=== PATIENT | female | born 1985 | race Caucasian/White ===

== ENCOUNTER 2017-05-18 01:30 | Inpatient (IN) ==
[2017-05-17 22:37] LABS: Amphetamine Screen,Urine Negative ng/mL (Cutoff=1000); Barbiturate Screen,Urine Negative ng/mL (Cutoff=200); Benzodiazepines Screen,Urine Negative ng/mL (Cutoff=200); Cannabinoid Screen,Urine Negative ng/mL (Cutoff = 50); Cocaine Screen,Urine Negative ng/mL (Cutoff= 300); Opiate Screen,Urine Negative ng/mL (Cutoff=300); Phencyclidine Screen,Urine Negative ng/mL (Cutoff=25)
[~2017-05-18 01:30] MED LIST: Famotidine 20 MG/2 ML VIAL IVP PRN; Naloxone 0.4 MG/ML INJ IVP PRN; Ondansetron 4 MG/2 ML VIAL IVP PRN; Ringers Solution, Lactated 1,000 ML IVC SCH
[2017-05-18] MEDS: *HR* Nalbuphine 20 MG/ML AMPUL IVP PRN ×2 (02:08→04:17)
[2017-05-18 02:20] LABS: Basophils % 0.2 %; Eosinophils % 0.1 %; Hemoglobin 11.2 g/dL (11.5-15.4); Immature Granulocytes % 0.8 % (0-4); Lymphocytes # 1.6 K/mcL (0.6-4.6); Lymphocytes % 11.3 %; Mean Corpuscular HGB Conc 33.9 g/dL (31.6-35.5); Mean Corpuscular Hemoglobin 28.9 pg (28.0-33.3); Mean Corpuscular Volume 85.1 fL (83.0-100.0); Mean Platelet Volume 9.6 fL (9.4-12.4); Monocytes # 0.8 K/mcL (0.0-1.3); Monocytes % 5.3 %; Neutrophils # 11.9 K/mcL (1.6-8.9); Platelet Count 312 K/mcL (140-400); Red Blood Count 3.88 M/mcL (3.82-4.97); Red Cell Distribution Width 14.6 % (11.5-14.5); Segmented Neutrophils % 82.3 %
--- NOTE | 2017-05-18 04:10 | OB/GYN History & Physical ---
Date of Encounter: 05/18/17 Time of Encounter: 02:00 Assessment and Plan (1) 40 weeks gestation of Current visit: Yes Status: Acute (2) Spontaneous onset of labor Current visit: Yes Status: Acute Admit for labor. Allow ambulation with intermittent monitoring. Clear liquid diet. Epidural when requested. Anticipate . (3) Rubella non-immune status, antepartum Current visit: Yes Status: Acute Offer vaccine . History of Present Illness Chief complaint: contractions HPI: Ms. Willingham is a 32 year old female presenting at 40 weeks gestation with c/o contractions every 4-5 minutes. She reports they started last night and have gotten closer together and more painful today. No LOF. Some bloody show noted but no active vaginal bleeding. Good FM. No other complaints. This has been uncomplicated. Blood type O positive. tpal negative HIV negative RUbella non-immune HepBsag negative Past Med Surg Social Fam HX - Past Medical History Medical history: no medical history Psychiatric history: no psych history - Past Surgical History Surgical History: no surgical history - Social History Smoking Status: Never smoker Alcohol use: none Drug use: none Obstetrical History - Pregnancies : 1 Medications and Allergies Ferrous Sulfate 05/17/17 [History] Tablet 05/17/17 [History] 3 Allergy/AdvReac Type Severity Reaction Status Date / Time No Known Allergies Allergy Verified 05/17/17 20:34 Review of System OB All systems PM: reviewed and no additional remarkable complaints except as stated Exam - Constitutional Constitutional: well developed, well nourished, moderate distress - HEENT HEENT: Mucus Membranes Moist - Lungs Respiratory exam: CTAB - Cardiovascular Cardiovascular exam: RRR - Abdomen Abdomen: Present: gravid, non tender - Extremities Extremities exam: normal inspection - Vulva Vulva: bilateral: normal - Cervix Dilation: 3 - Anus/Rectum Anus/Rectum: Present: normal perianal skin Results Result Diagrams: 05/18/17 01:45 Abnormal lab results WBC 14.5 K/mcL (4.3-11.1) H 05/18/17 01:45 Hgb 11.2 g/dL (11.5-15.4) L 05/18/17 01:45 Hct 33.0 % (35.3-44.9) L 05/18/17 01:45 RDW 14.6 % (11.5-14.5) H 05/18/17 01:45 Neutrophils # 11.9 K/mcL (1.6-8.9) H 05/18/17 01:45 All other labs normal. - VTE Reasons for not Prescribing Prophylaxis: Treatment not Indicated - Low risk for VTE
[2017-05-18] MEDS ORDERED: Epidural Premix (fent/bupiv) 110 ML EP ONE ×2 (05:57→13:38)
--- NOTE | 2017-05-18 05:57 | OB Labor Progress Note ---
Date of Encounter: 05/18/17 Time of Encounter: 05:55 Labor Progress Note - Subjective Subjective: Pt requesting epidural for pain with contractions. - Cervix Cervix: 4/90/0 - Heart Tones Heart Tones: Category I - [place]: 2-4 minutes per pt report. Not tracing well on toco. - Plan Plan: Plan for epidural. Will AROM when able. Anticipate .
[2017-05-18] MEDS ORDERED: *HR* FentaNYL (PF) 100 MCG/2 ML VIAL ONE (07:36)
[2017-05-18] MEDS ORDERED: Bupivacaine-MPF 0.25% 10 ML VIAL ONE (07:36)
[2017-05-18] MEDS ORDERED: Ondansetron 4 MG/2 ML VIAL IVP PRN ×2 (08:22→09:06)
[2017-05-18] MEDS ORDERED: *HR* FentaNYL (PF) 100 MCG/2 ML VIAL EP ONE (08:22)
[2017-05-18] MEDS ORDERED: EPHEDrine 50 MG/ML VIAL IVP PRN (08:22)
[2017-05-18] MEDS ORDERED: Bupivacaine-MPF 0.25% 10 ML VIAL EP ONE (08:22)
[2017-05-18] MEDS ORDERED: Naloxone 0.4 MG/ML INJ IVP PRN ×2 (08:22→09:06)
--- NOTE | 2017-05-18 08:26 | Anesthesia Evaluation PreOp ---
Date of Encounter: 05/18/17 Time of Encounter: 08:24 - Past History Planned Operation: SHANE Cardiac History: Denies any Significant Hx Pulmonary History: Denies Any Significant HX PATENT EXAMINER History: Denies Any Significant HX Other Medical History: Other Anesthesia History: No Prior Anesthetic Complications, Past Anesthesia (None, no family history of anesthetic complications.) Alcohol Use: none Drug use: none Medications and Allergies Ferrous Sulfate 05/17/17 [History] Tablet 05/17/17 [History] 3 Allergy/AdvReac Type Severity Reaction Status Date / Time No Known Allergies Allergy Verified 05/17/17 20:34 - Meds/Allergy Pre-op Review Medications Reviewed: Yes Allergies Reviewed: Yes Beta Blockers on Current Med List: No Anesthesia Results - Labs 05/18/17 01:45 Anesthesia Exam BP 120/70 T 97.2 R 20 P 82 Height: 6'0" Weight: 89.4kg NPO (# of Hours): 4 Pain Scale: 9 Pain Scale Used: Numeric (1 - 10) - HEENT Pupil (Motor): Pupils equal Mallampati: II Teeth: Normal Oral Opening: Greater than 3 - PATENT EXAMINER LOC: Oriented PATENT EXAMINER Motor: Normal RUE, Normal LUE, Normal RLE, Normal LLE, Normal Face PATENT EXAMINER Sensory: Normal: RUE, LUE, RLE, LLE, Face - Cardiac Rhythm: Regular Murmur: None JVD: No Carotid Bruit: No - Pulmonary Breath Sounds: bilateral Clear Respiratory Effort: Symmetrical Anesthesia Assess/Plan ASA Score: 2 Modified Missael Scale for Level of Consciousness: Cooperative, oriented, and tranquil Anesthetic Plan: Regional Autologous Blood: No Monitoring Plan: Standard Monitors Recovery Plan: Other
[2017-05-18] MEDS ORDERED: Epidural Premix (fent/bupiv) 110 ML EP SCH (08:30)
--- NOTE | 2017-05-18 08:36 | Anesthesia Procedures ---
<Sathish Mae M - Last Filed: 05/18/17 08:34> Date of Encounter: 05/18/17 Time of Encounter: 07:36 Procedures: Anesthesia - Epidural/Spinal Patient ID/Chart reviewed: Yes Patient examined: Yes OB Eval: Gestational age: 40 OB Eval: : 1 OB Eval: Hx Para: 0 OB Eval: Dilated at (cm): 4 OB Eval: Contractions: Non-stressed pattern Consent Obtained: Yes Supplemental Oxygen: None/Room Air Supplemental Oxygen Rate (L/min): 2 Site Prep: Aseptic Technique, Sterile prep and drape, Povidone-Iodine 1% Patient position: upright Local Anesthetic: Lidocaine 1% Amount of Local Anesthetic used: 3 Touhy Needle Gauge: 18 Touhy Needle Depth (cm): 5 Catheter Depth at Skin (cm): 14 Test Dose (1.5% Lido + Epi): Volume given (mls): 3 Test Dose Result: Negative Loading Dose: 0.25% Marcaine (mls): 10 Loading Dose: Fentanyl (mcg): 100 Loading Dose Administered: Thru Catheter Infusion Med: 0.125% Bupivacaine w/ 2 mcg/ml Fentanyl Infusion Rate (mls/hr): 18 Interspace Used: L4-L5 Loss of Resistance (TIMOTHY): Yes Blood: No CSF: No Paresthesia: No Procedure: SHANE placed in upright position 1st pass without any immediate noted complications. VSS and FHT stable throughout. Vitals + FHT's: 0736 BP 120/70 P 82 R 20 0809 BP 113/58 P 71 R 16 FHT 120s <Catrachita Gray L - Last Filed: 05/18/17 09:01> Date of Encounter: 05/18/17
[2017-05-18] MEDS ORDERED: *HR* HYDROmorphone (PF) 1 MG/ML SYRINGE IVP PRN (09:06)
[2017-05-18] MEDS ORDERED: *HR* Morphine 2 MG/ML SYRINGE IVP PRN (09:06)
--- NOTE | 2017-05-18 13:24 | OB Labor Progress Note ---
Date of Encounter: 05/18/17 Time of Encounter: 13:23 Labor Progress Note - Subjective Subjective: Pt comfortable with epidural. - Cervix Cervix: 5-6/90/0 - Heart Tones Heart Tones: Category I - [place]: Q5 minutes - Interventions Interventions: Pt repositioned to left lateral with peanut ball. - Plan Plan: Continue to monitor. Begin pitocin augmentation. Frequent position changes. Anticipate .
[2017-05-18] MEDS ORDERED: Oxytocin 20 units/ LR 1000 mL 20 UNIT/1,000 ML BAG IVC SCH ×2 (13:30→18:35)
--- NOTE | 2017-05-18 16:15 | OB/GYN Procedure Note ---
Delivery - Delivery Date: 05/18/17 Provider: Janet Espino Intrapartum events: none Delivery induction: none Delivery augmentation: pitocin Delivery monitor: external FHT, external uterine Anesthesia: epidural Estimated Blood Loss: 250 - (s) Infant A Delivery Date: 05/18/17 Delivery Time: 15:35 Presentation: vertex Position: FELIPE Route of delivery: Gender: Female Viability: Viable Pounds: 6 Ounces: 9 Weight Gram: 2.975 kg at 1 minute: 8 at 5 mins: 9 Shoulder Dystocia: not encountered Specimens collected: cord blood Placenta: spontaneous Cord: 3 umbilical vessels - Repair Episiotomy: none Laceration Description: None - Complications Delivery complications: none Delivery comments: Pt progressed normally to complete and +2 station. She then pushed effectively to over intact perineum for viable female infant weighing 6lbs. 9oz. with apgars 8 at one minute and 9 at five minutes. After a 3 minute delay the cord was clamped and cut and the placenta delivered spontaneous and intact. No repair needed. EBL 250ml. Mother and baby stable in kangaroo care following procedure. - Disposition Mom disposition: stable in LDR disposition: stable in LDR
[2017-05-18] MEDS ORDERED: Lanolin 28 GM TUBE TP PRN (18:35)
[2017-05-18] MEDS ORDERED: Acetaminophen 325 MG TABLET PO PRN (18:35)
[2017-05-18] MEDS ORDERED: Benzocaine/Menthol 56 GM AEROSOL SPRAY TP PRN (18:35)
[2017-05-18] MEDS ORDERED: Measles/Mumps/Rubella Vacc 0.5 ML VIAL SQ PRN (18:35)
[2017-05-18] MEDS ORDERED: Ibuprofen 600 MG TABLET PO PRN (18:35)
[2017-05-19 06:16] LABS: Basophils % 0.1 %; Eosinophils # 0.1 K/mcL (0.0-0.6); Eosinophils % 0.7 %; Hematocrit 28.1 % (35.3-44.9); Immature Granulocytes % 0.5 % (0-4); Lymphocytes # 2.6 K/mcL (0.6-4.6); Lymphocytes % 18.7 %; Mean Corpuscular Volume 87.5 fL (83.0-100.0); Mean Platelet Volume 9.7 fL (9.4-12.4); Monocytes # 0.9 K/mcL (0.0-1.3); Monocytes % 6.4 %; Neutrophils # 10.3 K/mcL (1.6-8.9); Platelet Count 233 K/mcL (140-400); Red Blood Count 3.21 M/mcL (3.82-4.97); Red Cell Distribution Width 14.9 % (11.5-14.5); Segmented Neutrophils % 73.6 %
[2017-05-19 08:44] VITALS: BP 108/69
[2017-05-19] MEDS ORDERED: Prenatal Vit/FA 1 EACH TABLET PO SCH (09:00)
--- NOTE | 2017-05-19 11:09 | Discharge Summary ---
Date of Encounter: 05/19/17 Time of Encounter: 11:07 - Discharge Diagnosis (1) (normal spontaneous vaginal delivery) Priority: Primary Status: Acute Comments: Doing well,, will D/C home. - Discharge Medications Prescriptions: Ibuprofen [Motrin] 600 mg PO Q6H PRN #40 tablet PRN Reason: Cramping Home Medications: Ferrous Sulfate 05/17/17 [History] Tablet 05/17/17 [History] Ibuprofen [Motrin] 600 mg PO Q6H PRN #40 tablet 05/19/17 [Rx] Allergies/Adverse Reactions: 3 Allergy/AdvReac Type Severity Reaction Status Date / Time No Known Allergies Allergy Verified 05/17/17 20:34 Data Procedures and tests throughout hospitalization: Laboratory Tests 05/17/17 05/18/17 05/19/17 20:20 01:45 05:46 WBC 14.5 H 13.9 H RBC 3.88 3.21 L Hgb 11.2 L 9.0 L D Hct 33.0 L 28.1 L MCV 85.1 87.5 MCH 28.9 28.0 MCHC 33.9 32.0 RDW 14.6 H 14.9 H Plt Count 312 233 MPV 9.6 9.7 Immature Gran % 0.8 0.5 Seg Neutrophils % 82.3 73.6 Lymphocytes % 11.3 18.7 Monocytes % 5.3 6.4 Eosinophils % 0.1 0.7 Basophils % 0.2 0.1 Neutrophils # 11.9 H 10.3 H Lymphocytes # 1.6 2.6 Monocytes # 0.8 0.9 Eosinophils # 0.0 0.1 Basophils # 0.0 0.0 Urine Opiates Screen Negative Ur Barbiturates Screen Negative Ur Phencyclidine Scrn Negative Ur Amphetamines Screen Negative U Benzodiazepines Scrn Negative Urine Cocaine Screen Negative U Marijuana (THC) Screen Negative Labs on day of discharge: Labs from last 24 hours 05/19/17 05:46 WBC 13.9 H RBC 3.21 L Hgb 9.0 L D Hct 28.1 L MCV 87.5 MCH 28.0 MCHC 32.0 RDW 14.9 H Plt Count 233 MPV 9.7 Immature Gran % 0.5 Seg Neutrophils % 73.6 Lymphocytes % 18.7 Monocytes % 6.4 Eosinophils % 0.7 Basophils % 0.1 Neutrophils # 10.3 H Lymphocytes # 2.6 Monocytes # 0.9 Eosinophils # 0.1 Basophils # 0.0 - Impressions Doing well without c/o. Appropriate lochia and cramping. Date of admission: 05/18/17 01:30 Consults: 05/18/17 18:35 Consult to Toxicology Supervisor [CONS] Routine Comment: Vaginal delivery, consult needed - Patient Status Disposition: Home, Self-Care Condition: Good Overall status at discharge: patient is progressing back to baseline - Discharge Instructions - Diet and Activity Activity: increase activity as tolerated Diet: advance to your usual diet Hospital Course Episiotomy: none Time Attestation: Total time spent providing and/or coordinating discharge services: Exam - Constitutional Vitals: Temp Pulse Resp BP Pulse Ox 98.1 F 74 18 108/69 98 05/19/17 08:43 05/19/17 08:43 05/19/17 08:43 05/19/17 08:43 05/19/17 03:15 General appearance IM: A&O X 3 - Respiratory Respiratory exam: Present: CTAB - Cardiovascular Cardiovascular exam IM: Present: RRR - GI/Abdominal GI/Abdominal exam IM: normal bowel sounds Incision: normal - Uterus Position: 3 Fingers Below Umbilicus - Extremities Exam Extremities exam IM: Present: full ROM - Neurological Exam Neurological exam: oriented X3
== END 2017-05-19 17:31 | disposition home or self-care (01) | DRG 775 ==
LOC: 1NENULAB → 1NENUOBS 18:32
PROVIDERS: ADMIT Obstetrics & Gynecology; ATTEND Obstetrics & Gynecology

== ENCOUNTER 2020-10-21 07:58 | Inpatient (IN) ==
[~2020-10-21 07:58] MED LIST changes: +Acetaminophen IV 1,000 MG/100 ML BAG IVPB ONE; +Famotidine 20 MG/2 ML VIAL IVP ONE; -Famotidine 20 MG/2 ML VIAL IVP PRN; -Naloxone 0.4 MG/ML INJ IVP PRN; -Ondansetron 4 MG/2 ML VIAL IVP PRN; -Ringers Solution, Lactated 1,000 ML IVC SCH
[2020-10-21] MEDS ORDERED: Metoclopramide 10 MG/2 ML VIAL IVP ONE (08:21)
[2020-10-21] MEDS ORDERED: Famotidine 20 MG/2 ML VIAL IVP ONE (08:21)
[2020-10-21] MEDS ORDERED: Ringers Solution, Lactated 1,000 ML IVC ONE (08:26)
[2020-10-21] MEDS ORDERED: cefOXitin 1,000 MG in 0.9 % Sodium Chloride Mini Bag 100 ML IVPB STA (08:26)
[2020-10-21] MEDS ORDERED: Ringers Solution, Lactated 1,000 ML IVC SCH (08:30)
[2020-10-21] MEDS ORDERED: *HR* HYDROmorphone (PF) 1 MG/ML SYRINGE IVP PRN (09:22)
[2020-10-21] MEDS ORDERED: Promethazine 6.25 MG in Water for inj. (sterile) 20 ML IVPB PRN (09:22)
[2020-10-21] MEDS ORDERED: *HR* OxyCODONE Immed Rel 5 MG TABLET PO PRN (09:22)
[2020-10-21] MEDS ORDERED: Ondansetron 4 MG/2 ML VIAL IVP PRN (09:22)
[2020-10-21] MEDS ORDERED: Ondansetron 4 MG/2 ML VIAL ONE (09:26)
[2020-10-21] MEDS ORDERED: *HR* Midazolam HCl 2 MG/2 ML VIAL ONE ×2 (09:26→10:43)
[2020-10-21] MEDS ORDERED: Dexamethasone 4 MG/ML VIAL ONE (09:26)
[2020-10-21] MEDS ORDERED: *HR* Propofol 200 MG/20 ML VIAL IVP ONE (09:26)
[2020-10-21] MEDS ORDERED: Lidocaine -MPF 2% 5 ML VIAL ONE (09:26)
[2020-10-21 09:28] LABS: Basophils % 0.6 %; Eosinophils % 0.8 %; Hematocrit 35.3 % (35.3-44.9); Hemoglobin 11.9 g/dL (11.5-15.4); Immature Granulocytes % 0.2 % (0-4); Lymphocytes % 42.1 %; Mean Corpuscular HGB Conc 33.7 g/dL (31.6-35.5); Mean Corpuscular Hemoglobin 30.7 pg (28.0-33.3); Mean Corpuscular Volume 91.2 fL (83.0-100.0); Mean Platelet Volume 9.7 fL (9.4-12.4); Monocytes # 0.3 K/mcL (0.0-1.3); Monocytes % 6.7 %; Neutrophils # 2.4 K/mcL (1.6-8.9); Platelet Count 230 K/mcL (140-400); Red Blood Count 3.87 M/mcL (3.82-4.97); Red Cell Distribution Width 13.1 % (11.5-14.5); Segmented Neutrophils % 49.6 %; White Blood Count 4.8 K/mcL (4.3-11.1)
[2020-10-21 10:11] VITALS: BP 103/58
[2020-10-21 10:22] LABS: Adenovirus Not Detected (Not Detect); Bordetella Pertussis Not Detected (Not Detect); Chlamydophila pneumoniae Not Detected (Not Detect); Coronavirus 229E Not Detected (Not Detect); Coronavirus HKU1 Not Detected (Not Detect); Coronavirus NL63 Not Detected (Not Detect); Coronavirus OC43 Not Detected (Not Detect); Human Metapneumovirus Not Detected (Not Detect); Human Rhinovirus/Enterovirus Not Detected (Not Detect); Influenza A Subtype 2009 H1 Not Detected (Not Detect); Influenza B Not Detected (Not Detect); Mycoplasma pneumoniae Not Detected (Not Detect); Parainfluenza Virus 1 Not Detected (Not Detect); Parainfluenza Virus 2 Not Detected (Not Detect); Parainfluenza Virus 3 Not Detected (Not Detect); Parainfluenza Virus 4 Not Detected (Not Detect); Respiratory Syncytial Virus Not Detected (Not Detect); SARS-CoV-2 Not Detected (Not Detect)
[2020-10-21] MEDS ORDERED: Ketorolac 30 MG/ML VIAL ONE (11:10)
[2020-10-21] MEDS ORDERED: Methylergonovine 0.2 MG/ML AMPUL IM ONE (12:54)
== END 2020-10-21 12:55 | disposition home or self-care (01) | DRG 770 ==
LOC: SAMDAY 07:58 → 1NENULAB 07:58
PROVIDERS: ADMIT Obstetrics & Gynecology; ATTEND Obstetrics & Gynecology

== ENCOUNTER 2021-10-10 06:07 | Inpatient (IN) ==
[2021-10-10] MEDS ORDERED: Naloxone 0.4 MG/ML INJ IVP PRN (06:10)
[2021-10-10] MEDS ORDERED: Azithromycin 500 MG in 0.9 % Sodium Chloride 250 ML IVPB PRN (06:10)
[2021-10-10] MEDS ORDERED: Metoclopramide 10 MG/2 ML VIAL IVP PRN (06:10)
[2021-10-10] MEDS ORDERED: *HR* Nalbuphine 10 MG/ML AMPUL IV PRN (06:10)
[2021-10-10] MEDS ORDERED: Ondansetron 4 MG/2 ML VIAL IVP PRN (06:10)
[2021-10-10] MEDS ORDERED: Famotidine 20 MG/2 ML VIAL IVP PRN (06:10)
[2021-10-10] MEDS ORDERED: Lidocaine 1% 20 ML MDV INFILT PRN (06:10)
[2021-10-10] MEDS ORDERED: Ringers Solution, Lactated 1,000 ML IVC SCH (06:15)
[2021-10-10 06:49] LABS: Basophils % 0.4 %; Eosinophils # 0.1 K/mcL (0.0-0.6); Eosinophils % 0.8 %; Hemoglobin 10.4 g/dL (11.5-15.4); Immature Granulocytes % 0.6 % (0-4); Lymphocytes # 2.1 K/mcL (0.6-4.6); Lymphocytes % 26.1 %; Mean Corpuscular HGB Conc 33.5 g/dL (31.6-35.5); Mean Corpuscular Hemoglobin 29.1 pg (28.0-33.3); Mean Corpuscular Volume 86.8 fL (83.0-100.0); Monocytes # 0.6 K/mcL (0.0-1.3); Neutrophils # 5.2 K/mcL (1.6-8.9); Platelet Count 285 K/mcL (140-400); Red Blood Count 3.57 M/mcL (3.82-4.97); Segmented Neutrophils % 65.1 %
[2021-10-10] MEDS ORDERED: Ondansetron 4 MG/2 ML VIAL ONE ×2 (07:21→09:11)
[2021-10-10] MEDS ORDERED: *HR* FentaNYL (PF) 100 MCG/2 ML VIAL ONE (07:21)
[2021-10-10] MEDS ORDERED: EPHEDrine 50 MG/ML VIAL ONE ×2 (07:21→09:11)
[2021-10-10] MEDS ORDERED: *HR* Morphine Sulfate/PF 10 MG/10 ML AMPUL ONE (07:21)
[2021-10-10] MEDS ORDERED: Ketorolac 30 MG/ML VIAL ONE (07:25)
[2021-10-10] MEDS ORDERED: CeFAZolin 2,000 MG/120 ML BAG IVPB ONE (07:59)
[2021-10-10] MEDS ORDERED: Oxytocin 30 UNIT/503 ML BAG IVC ONE (07:59)
[2021-10-10] MEDS ORDERED: Bupivacaine/PF 0.75% in Dex 2 ML AMPUL INFILT ONE (08:24)
[2021-10-10] MEDS ORDERED: Ringers Solution, Lactated 1,000 ML ONE (08:41)
[2021-10-10] MEDS ORDERED: Epidural Premix (fent/bupiv) 110 ML EP ONE (08:54)
[2021-10-10] MEDS ORDERED: EPHEDrine 50 MG/ML VIAL IVP PRN (09:10)
[2021-10-10] MEDS ORDERED: Epidural Premix (fent/bupiv) 110 ML EP SCH (09:15)
[2021-10-10 10:23] LABS: Amphetamine Screen,Urine Negative ng/mL (Cutoff=1000); Barbiturate Screen,Urine Negative ng/mL (Cutoff=200); Benzodiazepines Screen,Urine Negative ng/mL (Cutoff=200); Cannabinoid Screen,Urine Negative ng/mL (Cutoff = 50); Cocaine Screen,Urine Negative ng/mL (Cutoff= 300); Opiate Screen,Urine Negative ng/mL (Cutoff=300); Phencyclidine Screen,Urine Negative ng/mL (Cutoff=25)
[2021-10-11] MEDS ORDERED: Lidocaine/EPI 1:200k 2% PF 20 ML VIAL ONE (03:29)
[2021-10-11] MEDS ORDERED: *HR* FentaNYL (PF) 100 MCG/2 ML VIAL ONE ×2 (03:29→05:53)
[2021-10-11] MEDS ORDERED: Ropivacaine/PF 0.2% 20 ML VIAL ONE (03:29)
[2021-10-11] MEDS ORDERED: Rho Immune Globulin 1,500 UNIT SYRINGE IM PRN (10:01)
[2021-10-11] MEDS ORDERED: Benzocaine/Menthol 56 GM AEROSOL SPRAY TP PRN (10:01)
[2021-10-11] MEDS ORDERED: *HR* OxyCODONE Immed Rel 5 MG TABLET PO PRN (10:01)
[2021-10-11] MEDS ORDERED: Measles/Mumps/Rubella Vacc 0.5 ML VIAL SQ PRN (10:01)
[2021-10-11] MEDS ORDERED: Lanolin 7 G OINT...G. TP PRN (10:01)
[2021-10-11] MEDS ORDERED: Ondansetron ODT 4 MG TAB.RAPDIS SL PRN (10:01)
[2021-10-11] MEDS ORDERED: Oxytocin 30 UNIT/503 ML BAG IVC SCH (10:01)
[2021-10-11] MEDS: Prenatal Vit/FA 1 EACH TABLET PO SCH (15:39)
[2021-10-11] MEDS: Acetaminophen 325 MG TABLET PO SCH ×2 (15:39→20:02)
[2021-10-11] MEDS: Ibuprofen 600 MG TABLET PO SCH ×2 (15:39→18:12)
[2021-10-12] MEDS: Acetaminophen 325 MG TABLET PO SCH (04:14)
[2021-10-12 07:42] VITALS: BP 86/53; PULSE 79; TEMP 98.2; O2SAT 98
[2021-10-12] MEDS: Ibuprofen 600 MG TABLET PO SCH (08:20)
[2021-10-12] MEDS: Prenatal Vit/FA 1 EACH TABLET PO SCH (08:20)
== END 2021-10-12 14:08 | disposition home or self-care (01) | DRG 768 ==
LOC: 1NENULAB → 1NENUOBS 10-11 11:12
PROVIDERS: ADMIT Obstetrics & Gynecology; ATTEND Obstetrics & Gynecology